=== PATIENT | male | born 1985 | race Caucasian/White ===

== ENCOUNTER 2017-08-08 16:25 | Emergency (ER) | payer SELFPAY ==
[~2017-08-08] VITALS: Ht 180.3 cm; Wt 74.0 kg
[2017-08-08 16:31] VITALS: BP 127/79
[2017-08-08 17:21] LABS: RAPID INFLUENZA A Negative (Negative); RAPID INFLUENZA B Negative (Negative)
[2017-08-08] MEDS ORDERED: DEXAMETHASONE 4 MG TABLET PO ONE (17:30)
[2017-08-08] MEDS ORDERED: DEXAMETHASONE 4 MG TABLET ONE (17:32)
== END 2017-08-08 17:50 | disposition home or self-care (01) ==
LOC: ED 17:40
DX: J02.0 Streptococcal pharyngitis (principal)
CPT/HCPCS: 87400; 87880; 99284